=== PATIENT | male | born 1950 | race Caucasian/White ===

== ENCOUNTER 2018-09-19 07:32 | Emergency (ER) | payer MEDICARE, OTHER ==
[2018-09-19] MEDS ORDERED: Hydrocortisone/Neomycin/Polymyxin B Otic Susp 10 ML Bottle ONE (07:40)
[2018-09-19] MEDS ORDERED: Amoxicillin/Clavulanate K 875-125 MG Tab ONE (07:40)
--- NOTE | 2018-09-19 08:51 | ER ---
HISTORY OF PRESENT ILLNESS: This is a 67-year-old male here with complaints of right ear pain that he has had for the last few days. The patient states he does wear hearing aid in this ear and that bothers him with pain as well. He had some doxycycline left over from a previous prescription, and since they were traveling he has started taking the doxycycline for the last 2 days but it does not help. The patient denies any injury to the ear. He otherwise feels okay. OBJECTIVE: GENERAL APPEARANCE: The patient is awake and alert, in no obvious distress. VITAL SIGNS: Reviewed as listed. HEENT: Examining the right ear reveals he does have tragal and mild auricular tenderness with palpation. The ear canal is mildly swollen and irritated. The TM is also bulging and moderately erythematous and quite dusky in appearance. Left ear exam reveals the TM is slightly bulging with yellow fluid behind it. Oral mucous membranes moist. Tonsils not enlarged or injected. Pharynx not inflamed. NECK: Supple with shotty cervical lymphadenopathy. DIAGNOSES: 1. Acute otitis externa, right ear. 2. Acute otitis media, right ear. TREATMENT PLAN: Cortisporin otic drops will be started as well as Augmentin 875 b.i.d. for 10 days. The patient is encouraged to take a probiotic while on the antibiotic and Tylenol or ibuprofen should be used as needed. Follow up is p.rjos DURÁN/MODL /[id number]
== END 2018-09-19 07:45 | disposition home or self-care (01) ==
LOC: LB.ED 07:32
DX: H66.91 Otitis media, unspecified, right ear (principal); H60.501 Unspecified acute noninfective otitis externa, right ear
CPT/HCPCS: 99282; A9270